=== PATIENT | female | born 1950 | race Caucasian/White ===

== ENCOUNTER 2017-02-17 14:41 | Inpatient (IN) | payer MEDICARE ==
--- NOTE | ~2017-02-17 | HP ---
History And Physical [place] [id number] [place]. [address] NAME: FELECIA PADILLA : 50 STATUS : ADM IN [facility]#: [id number] AGE: 66 ADM/REG DATE : 02/17/17 MR#: [id number] REPORT SERV DATE: 02/17/17 DICTATED BY: SEGUNDO ELLINGTON DATE: 02/17/17 REPORT STATUS : Draft TRANSCRIBED BY: MODL DATE: 02/17/17 DATE OF ADMISSION: 02/17/2017 CHIEF COMPLAINT: Palpitations. HISTORY OF PRESENT ILLNESS: This is a 66-year-old lady with history of atrial fibrillation presenting with palpitations. The patient does have a clear history of chronic atrial fibrillation and has been following with Dr. Zamora as an outpatient. The patient actually has had a cardioversion about 2-1/2 months ago and since then the patient has been enjoying symptom-free life until about three to four days ago when she started having palpitations again. The patient tried to rest it off at home, but it persisted, and particularly, last night, the patient started feeling some nausea with occasional sharp chest pains and some shortness of breath. The patient had a scheduled followup with her PCP, Dr. Ben Costa, and at her visit, the patient was found to be in atrial fibrillation. Dr. Costa thus requested the patient be directly admitted and the patient was transferred here for further evaluation and care. REVIEW OF SYSTEMS: The patient denies any fevers or chills. Also, 14-point review of systems reviewed and negative other than mentioned above. MEDICATIONS: The list is still pending at this time. PAST MEDICAL HISTORY: 1. Chronic atrial fibrillation, for which the patient follows with Dr. Zamora. The patient is currently on amiodarone and Xarelto and possibly more medications. The patient reports that she has been tried on several different med agents to control her atrial fibrillation without success in the past. The patient again has had cardioversion about 2-1/2 months ago and that was her fourth or fifth cardioversion. There has been a discussion about cardiac ablation if she were to have another episode per the patient. 2. Hypertension. 3. Chronic pain. 4. Diabetes. 5. Depression and anxiety. 6. Lower gastrointestinal bleed history. 7. Peptic ulcer disease. 8. Diastolic congestive heart failure. PAST SURGICAL HISTORY: 1. Hysterectomy. 2. Back surgeries. 3. . 4. Left knee surgery. FAMILY HISTORY: History And Physical [address] [place]. [address] NAME: FELECIA PADILLA : 50 STATUS : ADM IN PAT#: [id number] AGE: 66 ADM/REG DATE : 02/17/17 MR#: [id number] REPORT SERV DATE: 02/17/17 DICTATED BY: SEGUNDO ELLINGTON DATE: 02/17/17 REPORT STATUS : Draft TRANSCRIBED BY: SANTIAGO DATE: 02/17/17 1. Diabetes. 2. Congestive heart failure. 3. COPD. SOCIAL HISTORY: The patient does not smoke, drink alcohol, or use any illicit drugs. The patient lives at home with her who is at bedside here in the hospital. PHYSICAL EXAMINATION: VITAL SIGNS: Temperature 97.6, blood pressure 160/93, pulse of 116, respiratory rate is 18, saturating 98% on room air. NEUROLOGIC: The patient is alert and oriented x3 with no focal neurologic deficits. GENERAL: The patient is awake, does not appear to be in acute distress, and she is cooperative. NECK: No JVD. No lymphadenopathy. Normal thyroid. CHEST: No midline sternotomy scar and no tenderness to palpation. LUNGS: Clear to auscultation bilaterally with normal respiratory effort on room air. CARDIOVASCULAR: The patient has irregularly irregular rate and rhythm, overall tachycardic with no murmurs, rubs, or gallops, and PMI is nondisplaced. ABDOMEN: Soft, nontender, with active bowel sounds and no organomegaly. EXTREMITIES: No edema. Normal distal pulses. No calf tenderness. SKIN: Clean, dry, warm, and intact. LABORATORY DATA: There are no labs, no EKG, or no chest x-ray. ASSESSMENT AND PLAN: This is a 66-year-old lady with history of atrial fibrillation, presenting with a recurrent episode of atrial fibrillation with rapid ventricular response. 1. Atrial fibrillation with rapid ventricular response, the patient has had multiple cardioversions in the past per the patient. Also, the patient has been maintained on amiodarone and Xarelto, and the patient apparently has had multiple different medication trials with either intolerance to therapy or failure to respond. The patient follows with Dr. Zamora as an outpatient. 2. Hypertension. 3. Diastolic congestive heart failure. 4. Diabetes type 2. 5. History of lower gastrointestinal bleed. 6. Chronic pain. 7. Anxiety and depression. PLAN: My plan is to admit the patient under telemetry monitoring. I will go ahead and check an EKG and start her on amiodarone drip. I will ask Dr. Zamora to come and evaluate the patient, and I will also give her gentle IV fluids. I will go ahead and check initial labs to include CBC, electrolytes, and renal function. I will also go ahead and check an echocardiogram. Otherwise, for the rest of stable past medical conditions including hypertension, diabetes, chronic pain, anxiety, depression, et al., I will continue home medications. Standard DVT prophylaxis. The patient is full code at this time. History And Physical [address] [place]. [address] NAME: FELECIA PADILLA : 50 STATUS : ADM IN [facility]#: [id number] AGE: 66 ADM/REG DATE : 02/17/17 MR#: [id number] REPORT SERV DATE: 02/17/17 DICTATED BY: SEGUNDO ELLINGTON DATE: 02/17/17 REPORT STATUS : Draft TRANSCRIBED BY: SANTIAGO DATE: 02/17/17 [facility] [place] Segundo Ellington MD / [id number] CC: MD Ben Weinberg M.D. David Wendt, M.D.
--- NOTE | ~2017-02-17 | CN ---
Consultation Report [facility] [address] [place]. [address] NAME: FELECIA BUTT : 50 STATUS : ADM IN PAT#: [id number] AGE: 66 ADM/REG DATE : 02/17/17 MR#: [id number] REPORT SERV DATE: 02/17/17 DICTATED BY: KISHAN FARIAS DATE: 02/17/17 REPORT STATUS : Draft TRANSCRIBED BY: MODL DATE: 02/17/17 DATE OF CONSULTATION: 02/17/2017 PRIMARY QA ANALYST: Dr. Irma Reardon. QUALITY REVIEWER: Dr. Zamora. REASON FOR CONSULTATION: Atrial fibrillation. HISTORY OF PRESENT ILLNESS: Ms. Butt is a 66-year-old female with recurrent atrial fibrillation and rapid ventricular response. She has a longstanding history of paroxysmal atrial fibrillation that is now becoming more persistent and chronic. She is managed on chronic amiodarone and metoprolol as well as anticoagulation with adjusted dose Xarelto due to underlying CKD. She has a class 1C agent allergy to flecainide. She had a recent cardioversion for recurrent symptomatic atrial fibrillation in November, which was her third cardioversion procedure. She was recently seen by electrophysiology and deemed appropriate for atrial fibrillation ablation for recurrent arrhythmias. Three days ago, she experienced recurrent palpitations that persisted. She had declining functional capacity with activity induced fatigue and dyspnea as well as increasing lower extremity edema. She presented to her primary care provider today with those complaints, was found to have an irregular and rapid pulse of 110 beats per minute with ECGs demonstrating recurrent symptomatic atrial fibrillation. She was directly admitted to the Hospitalist Service and labs are currently pending. She is resting reasonably well, lying with her head elevated at 30 degrees. She has had no angina. She denies syncope. She has no orthopnea/PND. REVIEW OF SYSTEMS: Pertinent positives and negatives are as outlined above, all others negative. PAST MEDICAL HISTORY: 1. Atrial fibrillation, paroxysmal. 2. Long-term high risk medications with amiodarone. 3. Long-term anticoagulation with adjusted dose Xarelto. 4. Edema/lymphedema, chronic. 5. Hypertension. 6. Hyperlipidemia. 7. Diabetes mellitus type 2. 8. Obesity. 9. Chronic kidney disease stage 3. HOME MEDICATIONS: 1. Amiodarone 200 mg daily. 2. Toprol-XL 25 mg daily. 3. Xarelto 15 mg daily. 4. Clonidine 0.2 mg two times daily. 5. Bumex 1 mg daily. Consultation Report [facility] [address] [place]. [address] NAME: FELECIA BUTT : 50 STATUS : ADM IN PAT#: [id number] AGE: 66 ADM/REG DATE : 02/17/17 MR#: [id number] REPORT SERV DATE: 02/17/17 DICTATED BY: KSIHAN FARIAS DATE: 02/17/17 REPORT STATUS : Draft TRANSCRIBED BY: SANTIAGO DATE: 02/17/17 6. Glipizide 2.5 mg daily. 7. Potassium supplementation. 8. MiraLAX as directed. 9. Morphine sulfate 3 times daily. 10.Pantoprazole 40 mg daily. 11.Synthroid 88 mcg daily. 12.Trazodone 50 mg at bedtime. ALLERGIES: FLECAINIDE CLASS 1C AGENT WITH AN UNKNOWN REACTION, DABIGATRAN CAUSES HER RASH, OXYCODONE CAUSES ALTERED MENTAL STATUS, CELEBREX CAUSES BLISTERS, CEPHALOSPORINS AND PENICILLINS CAUSE SWELLING AND A RASH. SOCIAL HISTORY: She does not use tobacco products, consume alcohol, or illegal drugs. FAMILY HISTORY: Significant for CAD and heart failure. PHYSICAL EXAMINATION: VITAL SIGNS: Afebrile, pulse is 115, respirations 16, blood pressure 160/90. MENTAL STATUS: Awake, alert, and oriented x3. PSYCH: Euthymic, normal affect. GENERAL: Well appearing and in no distress. HEENT: Sclerae anicteric, mucous membranes moist and without lesions. NECK: No jugular venous distention. No hepatojugular reflux, carotid upstrokes 2+ and symmetric, there are no carotid or subclavian bruit. LUNGS: Clear to auscultation without wheezes, crackles, or rales. CARDIOVASCULAR: Irregularly irregular and tachycardic with S1 and S2. No audible S3. No audible murmurs. No parasternal lift. PMI is not palpable. ABDOMEN: Obese, soft, and nontender. Bowel sounds positive and normoactive. No hepatomegaly, no masses, no abdominal bruit. PULSES: Radial dorsalis pedis pulses are all 2+ and symmetric. EXTREMITIES: Warm. There is 2+ bilateral lower extremity edema with tibial erythema. SKIN: No clubbing or cyanosis, no rashes or lesions. IMPRESSION: 1. Atrial fibrillation with rapid ventricular response. 2. Edema/lymphedema. 3. Hypertension. 4. Hyperlipidemia. 5. Diabetes mellitus type 2. 6. Obesity. 7. Chronic kidney disease, stage III. PLAN: Ms. Butt has recurrent symptomatic atrial fibrillation and rapid ventricular response despite optimized medical therapy and recurrent cardioversion procedures, last performed 11/2016. She was recently seen by Electrophysiology and felt it is appropriate Consultation Report [address] [place]. [address] NAME: FELECIA BUTT : 50 STATUS : ADM IN PAT#: [id number] AGE: 66 ADM/REG DATE : 02/17/17 MR#: [id number] REPORT SERV DATE: 02/17/17 DICTATED BY: KISHAN FARIAS. DATE: 02/17/17 REPORT STATUS : Draft TRANSCRIBED BY: SANTIAGO DATE: 02/17/17 for atrial fibrillation ablation for recurrent arrhythmias. Her other medical therapy and additional antiarrhythmic therapy is limited by class 1C agent allergy and comorbidities like chronic kidney disease. She also has mild resting bradycardia and sinus rhythm at 60 beats per minute. I recommended continuing p.o. amiodarone for now. Increase Toprol-XL to 25 mg twice daily, first dose now at p.r.n. IV metoprolol. Continue oral Xa inhibitor for now. Consult electrophysiology for further evaluation and consideration of EP study and atrial fibrillation ablation. Keep n.p.o. after midnight. Repeat cardioversion not recommended at this time given high likelihood for rapid recurrence. AEA/SANTIAGO Kishan Farias M.D. / [id number] CC: MD Ben Weinberg M.D.
--- NOTE | ~2017-02-17 | DS ---
Discharge Summary [facility] [address] [facility]. [address] NAME: FELECIA PADILLA : 50 STATUS : DIS IN PAT#: [id number] AGE: 66 ADM/REG DATE : 02/17/17 MR#: [id number] REPORT SERV DATE: 02/19/17 DICTATED BY: SEGUNDO ELLINGTON DATE: 02/19/17 REPORT STATUS : Draft TRANSCRIBED BY: MODL DATE: 02/19/17 ADMISSION DATE: 02/17/2017 DISCHARGE DATE: 02/19/2017 DISCHARGE DIAGNOSES: 1. Persistent atrial fibrillation with RVR, status post JEYSON with cardioversion. 2. Hypertension. 3. Diastolic congestive heart failure. 4. Diabetes type 2. 5. History of lower GI bleed. 6. Chronic pain. 7. Anxiety and depression. CONSULTANTS: Cardiology. PROCEDURES: JEYSON with direct current cardioversion on 02/18/2017. HOSPITAL COURSE: This is a 66-year-old lady with history of atrial fibrillation, who was admitted to the hospital with recurrent atrial fibrillation with RVR. For details, please refer to my own H and P. In summary, the patient was admitted and was seen by Cardiology for potential ablation versus cardioversion as Dr. Zamora was not able to accommodate ablation procedure during this hospital stay. The patient underwent JEYSON with cardioversion instead. The patient will have a close outpatient as a followup with Dr. Zamora for future scheduling of ablation procedure if deemed necessary from future evaluations. Otherwise, the patient actually had a very benign and uncomplicated hospital stay. The patient did not have any other active issues. The patient is now being discharged home in stable condition to be closely followed as an outpatient. DISPOSITION: Home. DISCHARGE MEDICATIONS: 1. Amiodarone 200 mg p.o. daily, this is a reduced dose from 200 b.i.d. prior to admission. 2. Toprol-XL 25 mg p.o. b.i.d., this is an increase from 25 mg p.o. once daily. 3. Xarelto 20 mg p.o. daily, which is an increased dose from 15 mg p.o. daily. 4. Otherwise, no changes to medications. FOLLOWUP: 1. Please follow up with PCP in the next one to two weeks. 2. Please follow up with Cardiology as instructed. Total of 25 minutes spent in coordinating this patient's discharge today. DICTATED BY: Segundo Ellington MD Discharge Summary [place] [id number] [facility] [address] [place] [address] NAME: FELECIA PADILLA : 50 STATUS : DIS IN PAT#: [id number] AGE: 66 ADM/REG DATE : 02/17/17 MR#: [id number] REPORT SERV DATE: 02/19/17 DICTATED BY: SEGUNDO ELLINGTON DATE: 02/19/17 REPORT STATUS : Draft TRANSCRIBED BY: SANTIAGO DATE: 02/19/17 [facility] [place] Segundo Ellington MD / [id number] CC: MD Ben Weinberg M.D.
--- NOTE | ~2017-02-17 | CN ---
Consultation Report [facility] [address] [place]. [address] NAME: FELECIA BUTT : 50 STATUS : ADM IN PAT#: [id number] AGE: 66 ADM/REG DATE : 02/17/17 MR#: [id number] REPORT SERV DATE: 02/18/17 DICTATED BY: SONY CONTRERAS DATE: 02/18/17 REPORT STATUS : Draft TRANSCRIBED BY: MODL DATE: 02/18/17 CARDIAC ELECTROPHYSIOLOGY CONSULTATION DATE OF CONSULTATION: 02/18/2017 REFERRING PROVIDER: Dr. Kishan Guardado. [employer]: Dr. Irma Reardon. MUNICIPAL ENGINEER: Dr. Nura Zamora. INDICATIONS: Atrial fibrillation. HISTORY OF PRESENT ILLNESS: Felecia Butt is a 66-year-old obese female with a background of diabetes, anxiety, hypertension, chronic pain. She was admitted yesterday after being sent to the hospital by Dr. Ben Costa. She has seen Dr. Costa for some swelling of her legs. The patient was then referred to [facility]. She was admitted to the Hospitalist Service. Cardiology was consulted. Cardiology is being consulted for electrophysiology. The patient has a background of what is reported as paroxysmal atrial fibrillation, but anticipated this as more of a persistent variety. She has an intolerance to class 1C agents. She has been on amiodarone 200 mg twice daily. She last had a cardioversion in November and held until going out of rhythm a couple of days ago. She feels a sense of anxiety in her chest and palpitations. She has some fatigue and effort intolerance and feels better in sinus rhythm than in atrial fibrillation. No syncope. No chest pain or significant shortness of breath, and does have some issues with lower extremity edema. PAST MEDICAL HISTORY: Persistent atrial fibrillation, previous cardioversion, hypertension, hyperlipidemia, mild mitral and aortic insufficiency, type 2 diabetes, lower extremity edema, chronic kidney disease, anemia, obesity, chronic pain syndrome. MEDICATIONS: Amiodarone 200 daily, Catapres, Cymbalta, iron, sliding scale insulin, Synthroid, Toprol, MS Contin, Protonix, Xarelto, Demadex, Desyrel. ALLERGIES: THE PATIENT HAS NUMEROUS ALLERGIES OUTLINED IN THE HOME MEDICINE RECONCILIATION ADMISSION ORDERS SHEET. SOCIAL HISTORY: No present smoking. FAMILY HISTORY: Reviewed and noncontributory. REVIEW OF SYSTEMS: As per the HPI. Otherwise, all review of systems negative. PHYSICAL EXAMINATION: Consultation Report [address] [place]. [address] NAME: FELECIA BUTT : 50 STATUS : ADM IN PAT#: [id number] AGE: 66 ADM/REG DATE : 02/17/17 MR#: [id number] REPORT SERV DATE: 02/18/17 DICTATED BY: SONY CONTRERAS DATE: 02/18/17 REPORT STATUS : Draft TRANSCRIBED BY: SANTIAGO DATE: 02/18/17 VITAL SIGNS: Blood pressure of 130s to 160s systolic over 70s to 80s diastolic, pulse between 100 to 114, respiratory rate is 18. The patient is afebrile. GENERAL: Appears stated age, no distress. EYES: Sclerae anicteric, no arcus senilis. MOUTH: Oral mucosa moist, lips acyanotic. NECK: Jugular venous pressure normal, no carotid bruits. LUNGS: Diminished breath sounds bilateral. CARDIAC: Regular rate and irregular rhythm, no murmurs, gallops or rubs. ABDOMEN: Soft, nondistended, nontender. Morbidly obese. EXTREMITIES: Some edema present. SKIN: Warm and dry. NEURO/PSYCH: Alert and oriented, nonfocal, mood appropriate. DATA: Sodium is 143, potassium 4.2, creatinine 1.3. White count 8.3, hemoglobin 12.6, platelets 262. Troponin 0.03 x2. TSH 1.7. BNP is 226. Electrocardiogram is atrial fibrillation, ventricular response 127 beats per minute, delayed R-wave progression. Telemetry is atrial fibrillation. IMPRESSION: 1. Recurrent persistent atrial fibrillation. 2. Obesity. 3. Diabetes. 4. Anxiety. RECOMMENDATION: Discussed the situation with the patient. I have given her options of modifying rate control agents with outpatient followup versus proceeding with a JEYSON cardioversion. Recommend JEYSON given reduced dose of Xarelto for renal insufficiency. The patient is more comfortable with a JEYSON cardioversion approach. We will plan to proceed with that route and have the patient follow up with Dr. Zamora as an outpatient for further discussion regarding treatment options for her atrial fibrillation. Unable to acutely accommodate an atrial fibrillation ablation on today's electrophysiology schedule. ERICK/SANTIAGO Sony Contreras M.D. / [id number] CC: MD Ben Weinberg M.D.
--- NOTE | ~2017-02-17 | OP ---
Record Of Operation [facility] [address] [place]. [address] NAME: FELECIA BUTT : 50 STATUS : ADM IN [facility]#: [id number] AGE: 66 ADM/REG DATE : 02/17/17 MR#: [id number] REPORT SERV DATE: 02/18/17 DICTATED BY: DATE: REPORT STATUS : Draft TRANSCRIBED BY: MODL DATE: 02/18/17 DATE OF PROCEDURE: 02/18/2017 CHIEF COMPLAINT/REASON FOR PROCEDURE: Atrial fibrillation. Written informed consent obtained. Please see chart for documentation. PROCEDURE: With the assistance of my Anesthesia colleagues, Mrs. Butt was sedated for the procedure. The transesophageal probe was placed with two attempts without complication. Salient 2D echocardiographic images along with color and spectral Doppler images were obtained. Following verification of no left atrial/left atrial appendage thrombus, DC cardioversion was performed, 200 joules x1 with return to sinus rhythm. 1. The left ventricular systolic function is mildly decreased with a calculated ejection fraction of 45% via Cassidy's method. 2. The right ventricle appeared normal in size and systolic function. 3. The left atrium was dilated. There was no evidence of left atrial thrombus present. Spontaneous echo contrast consistent with low-flow conditions were present. 4. The right atrium was dilated. 5. The left atrial appendage was interrogated at multiple levels and depths. Doppler velocities in the left atrial appendage ranged between 20 and 40 cm/second. 6. The mitral valve appeared to open normally without evidence of mitral stenosis. There was mild color flow and Doppler evidence for mitral valvular regurgitation. 7. The tricuspid valve opened normally. There was no evidence of stenosis. There was moderate color flow evidence for tricuspid valve regurgitation. 8. The aortic valve was trileaflet and opened normally without evidence of stenosis or regurgitation. 9. The pulmonary valve opened normally without significant pulmonary valvular regurgitation or stenosis. 10.There was no evidence of pericardial effusion. IMPRESSION: Successful JEYSON cardioversion. JAZZMINE/SANTIAGO Irma Reardon M.D. / [id number] CC: MD Ben Weinberg M.D.
[~2017-02-17 14:41] MED LIST: ABILIFY5 PO; ACET500CAP PO; AMB10 PO; AVINZA30 PO; BETAPACE80 PO; BUM1 PO; BUM2 PO; BUMEX; C1 PO; CAT1 PO; CAT2 PO; CENTRUM TAB1 TAB PO; CLEAR EYE1 OP; CLEAR EYE1 OPH; CORDARONE PO; CYMBALTA60 PO; DRONED400 PO; DUREZOL0.05 % OPH; EFFEX75 PO; ESTRACE1 MG PO; FERROUS SULF324 MG PO; FERROUS SULF325 M1 PO; FLONASE NAS; GLUCPH PO; ILEVRO1.7 ML OPH; JANTOVEN1 MG PO; JANTOVEN2 MG PO; JANTOVEN2.5 MG PO; JANTOVEN3 MG PO; JANTOVEN5 MG PO; KDUR20 PO; KLOR-CON M2020 MEQ PO; KLOR-CON20 MEQ PO; L20 PO; LEVAQUIN750 MG PO; LEVOTHYROXIN25 MCG PO; LEVOTHYROXIN88 MCG PO; LIDODERM PATCH TOP; LIDODERM T; LOP100 PO; LOP25 PO; LOP50 PO; MAX25 PO; METFORMIN HCL500 M1 PO; METHOC750B PO; MIRALAXPKT OR; MIRALAXPKT PO; MOBIC15 MG PO; MSCONT15 PO; MSCONTIN PO; MULTIVIT/MIN PO; MULTIVITAMI1 PO; NASAL SPRAY NAS; PAX20 PO; PREM625 PO; PRIN10 PO; PRIN20 PO; PROPOXYPHENE; PROTONIX PO; RAN500 PO; SENTAB PO; SYN88 PO; T PO; TAMBOCOR PO; TAMBOCOR150 MG PO; TEARS NATURA OP; TEARS NATURA OPH; TRAZ100 PO; TRAZ50 PO; TRAZODONE150 MG PO; VOLTAREN1 % T; VOLTAREN1 % TOP; XARELTO15 MG PO; XARELTO20 MG PO; Z5 PO
[2017-02-17] MEDS ORDERED: DEMA20 PO (15:44)
[2017-02-17] MEDS ORDERED: CAT1 PO (15:47)
[2017-02-17] MEDS ORDERED: GLUCXL2.5 PO (15:52)
[2017-02-17] MEDS ORDERED: CYMBALTA30 PO (15:53)
[2017-02-17] MEDS ORDERED: TOPXL100 PO (15:54)
[2017-02-17 17:17] LABS: BASOPHILS 0.2 %; BASOPHILS ABSOLUTE 0.02 10/3/uL (0.0-0.16); EOSINOPHILS 2.2 %; EOSINOPHILS ABSOLUTE 0.18 10/3/uL (0.0-0.53); HEMOGLOBIN 12.1 g/dL (12.0-16.0); IMMATURE GRANULOCYTES 0.2 %; IMMATURE GRANULOCYTES ABSOLUTE 0.02 10/3/uL (0.0-0.11); LYMPHOCYTES 19.1 %; LYMPHOCYTES ABSOLUTE 1.58 10/3/uL (0.67-4.30); MEAN CORPUS HGB CONC 31.3 g/dL (32.0-36.0); MEAN CORPUSCULAR HEMOGLOB 27.6 pg (26.0-34.0); MEAN PLATELET VOLUME 10.5 fL (9.2-13.0); MONOCYTES 11.2 %; MONOCYTES ABSOLUTE 0.93 10/3/uL (0.21-1.20); NEUTROPHILS 67.1 %; NEUTROPHILS ABSOLUTE 5.56 10/3/uL (2.02-8.40); PLATELET COUNT 260 10/3/uL (150-400); RBC DISTRIBUTION WIDTH 18.4 % (12.0-16.0); WHITE BLOOD CELLS 8.3 10/3/uL (4.5-10.5)
[2017-02-17 17:21] LABS: HEMATOCRIT 38.6 % (36.0-48.0); MANUAL DIFF NO %; MEAN CORPUSCULAR VOLUME 87.9 fL (80-100); RED CELL COUNT 4.39 10/6/uL (4.0-5.6)
[2017-02-17 17:40] LABS: CALCIUM, SERUM 8.4 MG/DL (8.5-10.4); CHLORIDE, SERUM 107 MMOL/L (96-112); CO2 (CARBON DIOXIDE) 31 MMOL/L (24-34); CREATININE 1.29 MG/DL (0.55-1.02); GFR AFRICAN AMERICAN 50 ML/MIN (>=60); GFR NON AFRICAN AMERICAN 43 ML/MIN (>=60); SODIUM, SERUM 141 MMOL/L (135-148); TROPONIN I 0.03 NG/ML (<0.05)
[2017-02-17 17:41] LABS: BUN (BLOOD UREA NITROGEN) 17 MG/DL (6-23); GLUCOSE, SERUM 64 MG/DL (60-99); POTASSIUM, SERUM 3.3 MMOL/L (3.5-5.3)
[2017-02-18 05:13] LABS: BASOPHILS 0.4 %; BASOPHILS ABSOLUTE 0.03 10/3/uL (0.0-0.16); EOSINOPHILS 2.3 %; EOSINOPHILS ABSOLUTE 0.19 10/3/uL (0.0-0.53); HEMATOCRIT 40.2 % (36.0-48.0); HEMOGLOBIN 12.6 g/dL (12.0-16.0); IMMATURE GRANULOCYTES 0.1 %; IMMATURE GRANULOCYTES ABSOLUTE 0.01 10/3/uL (0.0-0.11); LYMPHOCYTES 17.3 %; LYMPHOCYTES ABSOLUTE 1.43 10/3/uL (0.67-4.30); MEAN CORPUS HGB CONC 31.3 g/dL (32.0-36.0); MEAN CORPUSCULAR VOLUME 89.3 fL (80-100); MEAN PLATELET VOLUME 10.4 fL (9.2-13.0); MONOCYTES 9.4 %; MONOCYTES ABSOLUTE 0.78 10/3/uL (0.21-1.20); NEUTROPHILS 70.5 %; NEUTROPHILS ABSOLUTE 5.83 10/3/uL (2.02-8.40); PLATELET COUNT 262 10/3/uL (150-400); RBC DISTRIBUTION WIDTH 18.4 % (12.0-16.0); WHITE BLOOD CELLS 8.3 10/3/uL (4.5-10.5)
[2017-02-18 05:14] LABS: MANUAL DIFF NO %
[2017-02-18 05:33] LABS: BUN (BLOOD UREA NITROGEN) 18 MG/DL (6-23); CALCIUM, SERUM 8.9 MG/DL (8.5-10.4); CHLORIDE, SERUM 107 MMOL/L (96-112); CO2 (CARBON DIOXIDE) 29 MMOL/L (24-34); GFR AFRICAN AMERICAN 50 ML/MIN (>=60); GFR NON AFRICAN AMERICAN 43 ML/MIN (>=60); SODIUM, SERUM 143 MMOL/L (135-148); TROPONIN I 0.03 NG/ML (<0.05)
[2017-02-18 05:40] LABS: GLUCOSE, SERUM 86 MG/DL (60-99); POTASSIUM, SERUM 4.2 MMOL/L (3.5-5.3)
[2017-02-19] MEDS ORDERED: XARELTO20 MG PO (09:27)
[2017-04-03] MEDS ORDERED: GLUCPH PO (14:33)
[2017-04-09] MEDS ORDERED: CORDARONE PO (12:30)
[2017-04-09] MEDS ORDERED: XARELTO15 MG PO (12:32)
[2017-05-22] MEDS ORDERED: PROTONIX PO (18:57)
[2017-05-22] MEDS ORDERED: MIRALAX POWDER1 PKT PO (18:58)
[2017-05-22] MEDS ORDERED: SENTAB PO (19:01)
[2017-05-22] MEDS ORDERED: LIPITOR40 PO (19:05)
[2017-05-22] MEDS ORDERED: COREG25 (19:06)
== END 2017-02-19 13:20 | disposition home or self-care (01) | DRG 309 ==
LOC: 6NO 14:41
PROVIDERS: Internal Medicine
PROC: B246ZZ4 Ultrasonography of Right and Left Heart, Transesophageal (ICD-10-PCS; principal; 2017-02-18)
PROC: 5A2204Z Restoration of Cardiac Rhythm, Single (ICD-10-PCS; 2017-02-18)
DX: I48.1 Persistent atrial fibrillation (principal); I13.0 Hypertensive heart and chronic kidney disease with heart failure and stage 1 through stage 4 chronic kidney disease, or unspecified chronic kidney disease; E11.22 Type 2 diabetes mellitus with diabetic chronic kidney disease; I50.32 Chronic diastolic (congestive) heart failure; E11.9 Type 2 diabetes mellitus without complications; F32.9 Major depressive disorder, single episode, unspecified; F41.9 Anxiety disorder, unspecified; G89.4 Chronic pain syndrome; I48.0 Paroxysmal atrial fibrillation; N18.3 Chronic kidney disease, stage 3 (moderate); I08.3 Combined rheumatic disorders of mitral, aortic and tricuspid valves; I89.0 Lymphedema, not elsewhere classified; Z79.01 Long term (current) use of anticoagulants; Z90.710 Acquired absence of both cervix and uterus; Z87.11 Personal history of peptic ulcer disease
CPT/HCPCS: 80048; 82962; 83880; 84443; 84484; 85025; 92960; 93005; 93312; 93320; 93325; A9270-GY; C8929; J0282; Q9957